=== PATIENT | female | born 1985 | race African-American/Black ===

== ENCOUNTER 2016-06-24 09:55 | Emergency (ER) | payer OTHER ==
[~2016-06-24] VITALS: Ht 157.5 cm; Wt 84.5 kg
[~2016-06-24 09:55] MED LIST: ADDERALL20 MG PO; ALPRAZOLAM1 MG PO; AMBIEN10 MG PO; AMOXICILLIN875 MG PO; CIPRO500 MG PO; CYMBALTA20 MG PO; FIORICET,ESG1 TABLET PO; FLAGYL500 MG PO; LEXAPRO10 MG PO; LITHATE20 MG PO; MOBIC7.5 MG PO; MOTRIN600 MG PO; NOHOMEMEDS; NORCO 5/3251 TABLET PO; PREDNISONE10 M1 PO; PRENAPLUS TABL1 EACH PO; PRENATAL VITAM1 EAC1 PO; PROAIR HFA8.5 GM IH; PROVERA,CYCRIN5 MG PO; SAPHRIS10 MG; ULTRAM50 MG PO; VYVANSE50 MG PO; XANAX0.5 MG PO; ZYPREXA2.5 MG
[2016-06-24 10:20] VITALS: BP 110/74
[2016-06-24] MEDS ORDERED: FLEXERIL10 MG PO (11:12)
== END 2016-06-24 11:39 | disposition home or self-care (01) ==
LOC: EME 09:55
DX: S33.5XXA Sprain of ligaments of lumbar spine, initial encounter (principal); R51 Headache; V49.50XA Passenger injured in collision with unspecified motor vehicles in traffic accident, initial encounter; Y92.410 Unspecified street and highway as the place of occurrence of the external cause
CPT/HCPCS: 99281; 99284

== ENCOUNTER 2017-07-13 19:51 | Emergency (ER) | payer OTHER ==
[~2017-07-13] VITALS: Ht 154.9 cm; Wt 86.5 kg
[~2017-07-13 19:51] MED LIST changes: +FLEXERIL10 MG PO
[2017-07-13 20:23] LABS: HEMATOCRIT 37.8 % (36.0-46.0); MCH 29.1 PG (29.0-34.0); MCHC 34.4 G/DL (30.0-36.0); MCV 84.6 FL (83-99); PLATELET COUNT 278 K/uL (156-360); RBC DIS.WIDTH-CV 13.5 % (11.8-14.6); RBC DIS.WIDTH-SD 41.9 % (39-53); RED BLOOD COUNT 4.47 M/uL (3.80-5.20); WHITE BLOOD COUNT 7.2 K/uL (4.1-10.2)
[2017-07-13 20:31] LABS: ALBUMIN 4.1 g/dL (3.2-4.8)
[2017-07-13 20:32] LABS: CHLORIDE 107 mEq/L (99-109); SODIUM 141 mEq/L (136-147)
[2017-07-13 20:34] LABS: GLUCOSE 92 mg/dL (70-99); TOTAL PROTEIN 8.3 g/dL (6.4-8.3)
[2017-07-13 20:36] LABS: TOTAL BILIRUBIN 0.6 mg/dL (0.0-1.0)
[2017-07-13 20:37] LABS: ALKALINE PHOSPHATASE 87 IU/L (3-129)
[2017-07-13 20:38] LABS: CREATININE 0.8 mg/dL (0.6-1.3); GFR ESTIMATE (CALCULATED) > 59 mL/min/
[2017-07-13 20:39] LABS: AST (GOT) 22 IU/L (2-34); UREA NITROGEN (BUN) 8 mg/dL (9-23)
[2017-07-13 20:40] LABS: ALT (GPT) 18 IU/L (3-49)
[2017-07-13 20:47] LABS: QUANTITATIVE HCG < 4.0 MIU/ML
[2017-07-13 21:05] LABS: APPEARANCE SL.HAZY ((CLEAR)); BILIRUBIN NEGATIVE; BLOOD NEGATIVE; COLOR YELLOW ((YELLOW)); GLUCOSE (STRIP) NEGATIVE; KETONES NEGATIVE; LEUKOCYTES NEGATIVE; NITRITE NEGATIVE; PROTEIN (STRIP) 30; SPECIFIC GRAVITY 1.027 (1.000-1.030)
[2017-07-13 21:10] LABS: BACTERIA NONE SEEN /HPF; EPITHELIAL CELLS 1+ /HPF; MUCUS 4+ /LPF; UCUL ADDED? NO; WHITE BLOOD CELLS 0-5 /HPF (0-5)
[2017-07-13 22:49] LABS: SOURCE SWAB
[2017-07-13 23:14] VITALS: BP 121/81
[2017-07-14 00:21] LABS: CANDIDA DNA PROBE NEGATIVE; GARDNERELLA DNA PROBE POSITIVE; TRICHOMONAS DNA PROBE NEGATIVE
== END 2017-07-13 23:16 | disposition home or self-care (01) ==
LOC: EME 19:51
PROVIDERS: Nurse Practitioner Family
DX: K59.00 Constipation, unspecified (principal); R10.31 Right lower quadrant pain; M32.9 Systemic lupus erythematosus, unspecified; F31.9 Bipolar disorder, unspecified; F41.9 Anxiety disorder, unspecified
CPT/HCPCS: 74177; 80053; 81003; 84702; 85027; 87210; 87480; 87491; 87510; 87591; 87660; 99281; 99285; J1885; J2405; J7120